=== PATIENT | female | born 1965 | race Caucasian/White ===

== ENCOUNTER 2017-07-09 06:16 | Emergency (ER) | payer OTHER ==
[~2017-07-09] VITALS: Ht 162.6 cm; Wt 73.5 kg
[~2017-07-09 06:16] MED LIST: LEVOTHYROXINE112 MCG PO; LIOTHYRONINE SO5 MC1 PO
--- NOTE | 2017-07-09 06:32 | ED SYNCOPE COMPLAINT ---
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 PATIENT ALERT AND ORIENTED ON ARRIVAL TO ER, DENIES COMPLAINTS. SKIN PALE, HR:44-50, SINUS PEMA ON MONITOR. DENIES CARDIAC HX. PREHOSP IV EST #20 LEFT AC. Triage Nurses Notes Reviewed? yes Timing: recent history Precipitating Factors: none Context: standing, attending to mother. Episode Description: see below Loss of Consciousness: brief (seconds) Associated Symptoms: dizziness HPI: 52 yo woman in prior good health presents after a brief syncopal episode. She shares, "I got up from bed... I heard my mother had fallen... I attended to her... I was standing there holding an ice pack on her. I started feeling really dizzy... I sat down... I stood up and felt dizzy again. I felt a numbness go down both of my arms. I passed out... My lowered me to the ground... I didn't hit my head. I passed out for maybe a minute he said." She notes that she has been eating well, had no chest pain, focal weakness, palpitations. She is presently feeling well. (Ever TRIPATHI,Hernando Peters) Reconcile Medications Fluoxetine HCl 20 MG TABLET 1 TAB PO QPM MENTAL HEALTH (Reported) Levothyroxine Sodium 112 MCG TABLET 1 TAB PO DAILY HYPOTHYROID (Reported) Phentermine HCl 37.5 MG TABLET 1 TAB PO QAM WEIGHT LOSS (Reported) (Blanca TRIPATHI,Trey Bob) Past History Travel History Traveled to [place] past 21 day No Medical History Any Pertinent Medical History? see below for history Neurological: NONE EENT: NONE Cardiovascular: NONE Respiratory: NONE Gastrointestinal: NONE Hepatic: NONE Renal: NONE Musculoskeletal: NONE Psychiatric: NONE Endocrine: NONE Blood Disorders: NONE Cancer(s): NONE DIRECTOR LOAN/Reproductive: NONE Surgical History Surgical History: non-contributory Psychosocial History What is your primary language Belarusian Tobacco Use: Quit >30 days ago Family History Hx Contributory? No (Ever TRIPATHI,Hernando Peters) Review of Systems Review of Systems Constitutional: Reports: no symptoms. EENTM: Reports: no symptoms. Respiratory: Reports: no symptoms. Cardiovascular: Reports: no symptoms. GI: Reports: no symptoms. Genitourinary: Reports: no symptoms. Musculoskeletal: Reports: no symptoms. Skin: Reports: no symptoms. Neurological/Psychological: Reports: no symptoms. All Other Systems: Reviewed and Negative (Ever TRIPATHI,Hernando Peters) Physical Exam Physical Exam General Appearance: well developed/nourished, no apparent distress Head: atraumatic, normal appearance Eyes: Bilateral: normal appearance. Ears, Nose, Throat: normal pharynx, hearing grossly normal Neck: normal inspection, supple, full range of motion Respiratory: normal breath sounds, chest non-tender, no respiratory distress, quiet respiration, lungs clear Cardiovascular: regular rate/rhythm Gastrointestinal: normal bowel sounds, soft, non-tender, no organomegaly Back: normal inspection, normal range of motion Extremities: normal inspection, normal capillary refill, normal range of motion, no edema Psychiatric: awake, alert, oriented x 3 Cranial Nerves: normal hearing, normal speech, PERRL Coordination/Gait: normal finger to nose Motor/Sensory: no motor/sensory deficits Reflexes: 1+: bicep (R), bicep (L). Core Measures ACS in differential dx? No CVA/TIA Diagnosis: No Sepsis Present: No Sepsis Focused Exam Completed? No (Ever TRIPATHI,Hernando Peters) Progress Differential Diagnosis: AMI, drug induced syncope, orthostatic syncope, other valvular disease Plan of Care: Orders Procedure Date/time Status Regular Diet 07/09 L Active TROPONIN LEVEL 07/09 1045 Complete EKG 07/09 1045 Active TROPONIN LEVEL 07/09 0632 Complete LIPASE 07/09 0632 Complete HEPATIC FUNCTION PANEL 07/09 0632 Complete D-DIMER 07/09 0632 Complete CBC WITHOUT DIFFERENTIAL 07/09 0632 Complete BASIC METABOLIC PANEL 04/30 0632 Complete AMYLASE 07/10 631 Complete EKG 07/09 617 Active Laboratory Tests 07/09/17 1040: Troponin I < 0.01 07/09/17 0634: Anion Gap 8, Estimated GFR > 60, BUN/Creatinine Ratio 45.0 H, Glucose 109 H, Calcium 8.9, Total Bilirubin 0.5, Direct Bilirubin 0.4, AST 17, ALT 26, Alkaline Phosphatase 45, Troponin I < 0.01, Total Protein 6.5, Albumin 4.0, Amylase 65, Lipase 210, D-Dimer High Sensitivty < 200, CBC w Diff NO MAN DIFF REQ, RBC 4.76, MCV 85.0, MCH 28.3, MCHC 33.3, RDW 13.5, MPV 8.0, Gran % 51.0, Lymphocytes % 36.8, Monocytes % 8.1, Eosinophils % 3.5, Basophils % 0.6, Absolute Granulocytes 3.4, Absolute Lymphocytes 2.5, Absolute Monocytes 0.5, Absolute Eosinophils 0.2, Absolute Basophils 0 Diagnostic Imaging: Viewed by Me: Radiology Read. Discussed w/RAD: Radiology Read. Initial ED EKG: sinus pema, no acute changes Hand-Off Endorsed To: Blanca TRIPATHI,Trey Bob Endorsed Time: 0700 Pending: labs, Xray (Ever TRIPATHI,Hernando Peters) Comments: 07/09/2017 8:36:24 AM patient signed out to me by Dr. 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 The patient is feeling better although she states her right arm still feels "cold". She is also feeling somewhat nauseous and also hungry and has asked for something to eat. She is willing to wait for repeat EKG and troponin. 07/09/2017 12:21:42 PM repeat troponin unchanged but patient's EKG now shows T- wave inversions in the anteroseptal leads. The patient herself is asymptomatic at this time and is eager to go home. I have notified her that I will speak to the performance improvement manager about her case, she agrees. 07/09/2017 12:28:23 PM I discussed this patient's case with Dr. Ced Hadley who reviewed her EKGs and agrees that the T-wave inversions are present but are nonspecific. He feels that this was very likely a vasovagal episode given the prodrome phase. Patient's BUN is somewhat elevated perhaps indicating she is possibly dehydrated. He feels comfortable with discharging this patient home with outpatient follow-up. (Blanca TRIPATHI,Trey Bob) Departure Departure Disposition: STILL A PATIENT Condition: Stable Referrals: Asmita TRIPATHI,Patricia (PCP/Family) Departure Forms: Customer Survey General Discharge Information Comments 07/09/17, 6:41am... pt comfortable in ED... sinus pema on monitor... pt to be signed out to dr. rios at 7am. (Ever TRIPATHI,Hernando Peters) Departure Clinical Impression Primary Impression: Syncope Qualifiers: Syncope type: vasovagal syncope Qualified Code: R55 - Syncope and collapse Additional Instructions: Maintain a good fluid intake. Avoid sudden positional changes or prolonged standing. Follow-up with your primary care physician this week for reevaluation. Consider following up with Dr. Ced Gaspar, the performance improvement manager , for further evaluation of your EKG changes. Return if any concerns or sudden worsening. Please note that there might be incidental findings in your evaluation that are unrelated to the current emergency department visit. Please notify your primary care doctor about this emergency department visit in order to obtain and review all of the testing performed so that these incidental findings can be monitored as needed. If you had an x-ray performed, please understand that some fractures may not be seen on the initial set of x-rays. If your symptoms persist you might need a repeat set of x-rays to check for such a fracture. If you had a laceration evaluated, please understand that foreign bodies such as glass or wood may not be visible to the naked eye or on plain x-rays. If the wound becomes red, swollen, increasingly more painful or if there is any drainage from the wound, please have it reevaluated by a physician for the possibility of a retained foreign body. If you're unable to follow up as outlined in the discharge instructions please return to the emergency department. Thank you for choosing the [facility] Emergency Department for your care. It was a pleasure to serve you today. Trey Rios M.D. [facility] (Blanca TRIPATHI,Trey Bob)
[2017-07-09 06:47] LABS: ABSOLUTE BASOPHIL COUNT 0 /CUMM (0.0-0.2); ABSOLUTE EOSINOPHIL COUNT 0.2 /CUMM (0.0-0.7); ABSOLUTE GRANULOCYTE CT 3.4 /CUMM (1.4-6.5); ABSOLUTE LYMPH COUNT 2.5 /CUMM (1.2-3.4); ABSOLUTE MONOCYTE COUNT 0.5 /CUMM (0.10-0.60); BASOPHIL % 0.6 % (0.0-2.0); EOSINOPHIL % 3.5 % (0-5); HEMATOCRIT 40.4 % (37-47); MEAN CORPUSCULAR HGB 28.3 PG (27.0-31.0); MEAN CORPUSCULAR HGB CONC 33.3 G/DL (33.0-37.0); PLATELET COUNT 161 /CUMM (130-400); RBC DISTRIBUTION WIDTH 13.5 % (11.5-14.5); RED BLOOD CELL CT 4.76 /CUMM (4.20-5.40); WHITE BLOOD CELL COUNT 6.8 /CUMM (4.8-10.8)
--- NOTE | 2017-07-09 07:38 | RADIOLOGY REPORT ---
EXAMINATION: XR PORTABLE CHEST CLINICAL INFORMATION: 52-year-old female with chest pain. COMPARISON: None available. TECHNIQUE: Portable AP semierect view of the chest was obtained. FINDINGS: No significant abnormality is noted involving the heart, lungs, mediastinum, bony thorax or soft tissues. The first left rib is hypoplastic. IMPRESSION: Unremarkable examination.
[2017-07-09] MEDS ORDERED: PHENTERMINE H PO (08:15)
[2017-07-09] MEDS ORDERED: FLUOXETINE HCL20 M3 PO (08:15)
[2017-07-09 12:40] VITALS: BP 126/67
== END 2017-07-09 12:43 ==
LOC: ERH 06:16
PROVIDERS: Pediatrics
DX: R55 Syncope and collapse (principal)
CPT/HCPCS: 71045; 93005; 93010